=== PATIENT | female | born 1960 | race Caucasian/White ===

== ENCOUNTER → 2020-02-14 08:31 | Outpatient (BNVA) | payer MEDICARE, MEDICAID, SELFPAY | PROVIDERS: Family Provider Family Medicine; PCP Family Medicine; Referring Provider Physician Assistant Medical; Visit Provider Anesthesiology Pain Medicine | DX: M51.16 Intervertebral disc disorders with radiculopathy, lumbar region (principal); M47.816 Spondylosis without myelopathy or radiculopathy, lumbar region; M50.90 Cervical disc disorder, unspecified, unspecified cervical region; M54.9 Dorsalgia, unspecified; M19.90 Unspecified osteoarthritis, unspecified site; M62.830 Muscle spasm of back; Z79.891 Long term (current) use of opiate analgesic | CPT/HCPCS: 99205 ==

== ENCOUNTER → 2020-03-13 09:14 | Outpatient (BNVA) | payer MEDICARE, MEDICAID, SELFPAY | PROVIDERS: Family Provider Family Medicine; PCP Physician Assistant Medical; Visit Provider Anesthesiology Pain Medicine | DX: M47.816 Spondylosis without myelopathy or radiculopathy, lumbar region (principal); M51.16 Intervertebral disc disorders with radiculopathy, lumbar region; M50.90 Cervical disc disorder, unspecified, unspecified cervical region; M54.9 Dorsalgia, unspecified; M19.90 Unspecified osteoarthritis, unspecified site; M62.830 Muscle spasm of back | CPT/HCPCS: 99213; 99214 ==

== ENCOUNTER → 2020-04-13 12:17 | Outpatient (BNVA) | payer MEDICARE, MEDICAID, SELFPAY | PROVIDERS: Family Provider Family Medicine; PCP Physician Assistant Medical; Visit Provider Anesthesiology Pain Medicine | DX: M47.816 Spondylosis without myelopathy or radiculopathy, lumbar region (principal); M54.9 Dorsalgia, unspecified | CPT/HCPCS: 64493; 64494; 64495; J3490 ==

== ENCOUNTER → 2020-05-02 10:02 | Outpatient (BNVA) | payer MEDICARE, MEDICAID, SELFPAY | PROVIDERS: Family Provider Family Medicine; PCP Physician Assistant Medical; Visit Provider Anesthesiology Pain Medicine | DX: M51.16 Intervertebral disc disorders with radiculopathy, lumbar region (principal); M48.062 Spinal stenosis, lumbar region with neurogenic claudication; M47.816 Spondylosis without myelopathy or radiculopathy, lumbar region; M50.90 Cervical disc disorder, unspecified, unspecified cervical region; M54.9 Dorsalgia, unspecified; M19.90 Unspecified osteoarthritis, unspecified site; M62.830 Muscle spasm of back; Z79.891 Long term (current) use of opiate analgesic | CPT/HCPCS: 99214; 99215 ==

== ENCOUNTER → 2020-05-15 08:47 | Outpatient (BNVA) | payer MEDICARE, MEDICAID, SELFPAY | PROVIDERS: Family Provider Family Medicine; PCP Physician Assistant Medical; Referring Provider Anesthesiology Pain Medicine; Visit Provider Orthopaedic Surgery | DX: M51.16 Intervertebral disc disorders with radiculopathy, lumbar region (principal); M48.061 Spinal stenosis, lumbar region without neurogenic claudication; M41.80 Other forms of scoliosis, site unspecified; M81.0 Age-related osteoporosis without current pathological fracture | CPT/HCPCS: 72114 ==

== ENCOUNTER → 2020-05-24 09:55 | Outpatient (BNVA) | payer MEDICARE, MEDICAID, SELFPAY | PROVIDERS: Family Provider Family Medicine; PCP Physician Assistant Medical; Visit Provider Anesthesiology Pain Medicine | DX: M51.16 Intervertebral disc disorders with radiculopathy, lumbar region (principal); M48.062 Spinal stenosis, lumbar region with neurogenic claudication; M47.816 Spondylosis without myelopathy or radiculopathy, lumbar region; M50.90 Cervical disc disorder, unspecified, unspecified cervical region; M54.9 Dorsalgia, unspecified; M17.0 Bilateral primary osteoarthritis of knee; M62.830 Muscle spasm of back; Z79.891 Long term (current) use of opiate analgesic | CPT/HCPCS: 99214 ==

== ENCOUNTER → 2020-06-21 09:51 | Outpatient (BNVA) | payer MEDICARE, MEDICAID, SELFPAY | PROVIDERS: Family Provider Family Medicine; PCP Physician Assistant Medical; Visit Provider Anesthesiology Pain Medicine | DX: M51.16 Intervertebral disc disorders with radiculopathy, lumbar region (principal); M48.062 Spinal stenosis, lumbar region with neurogenic claudication; M47.816 Spondylosis without myelopathy or radiculopathy, lumbar region; M54.9 Dorsalgia, unspecified; M50.90 Cervical disc disorder, unspecified, unspecified cervical region; M62.830 Muscle spasm of back; M19.90 Unspecified osteoarthritis, unspecified site; Z79.891 Long term (current) use of opiate analgesic | CPT/HCPCS: 99213 ==

== ENCOUNTER → 2020-07-31 08:54 | Outpatient (BNVA) | payer MEDICARE, MEDICAID, SELFPAY | PROVIDERS: Family Provider Family Medicine; PCP Physician Assistant Medical; Visit Provider Anesthesiology Pain Medicine | DX: M51.16 Intervertebral disc disorders with radiculopathy, lumbar region (principal); M48.062 Spinal stenosis, lumbar region with neurogenic claudication; M47.816 Spondylosis without myelopathy or radiculopathy, lumbar region; M54.9 Dorsalgia, unspecified; M50.90 Cervical disc disorder, unspecified, unspecified cervical region; M19.012 Primary osteoarthritis, left shoulder; M62.830 Muscle spasm of back; Z79.899 Other long term (current) drug therapy; Z79.891 Long term (current) use of opiate analgesic | CPT/HCPCS: 99214 ==

== ENCOUNTER 2020-12-20 13:11 | Outpatient (CLI) | payer MEDICARE, MEDICAID, SELFPAY ==
--- NOTE | 2020-12-20 13:21 | CT_ITS ---
WS: [id number] CT NECK WITH CONTRAST HISTORY: BILATERAL Otalgia, cervicalgia TECHNIQUE: Contiguous 5 mm axial images are performed through the neck with intravenous contrast. Sag ittal and coronal reformats are also submitted. All CT scans at [facility] use at least o ne of these dose optimization techniques: automated exposure control; mA and/or kV adjustment per pat ient size (includes targeted exams where dose is matched to clinical indication); or iterative recons truction. CONTRAST: CONTRAST: Omnipaque 300; 95 mL IV. DLP: 1277.13 mGycm COMPARISON: None available. Nasopharynx, oropharynx, hypopharynx and larynx are unremarkable. No soft tissue masses or abnormal e nhancement. Torus tubarius and fossa of Rosenmuller and parapharyngeal fat are normal. Small benign cervical chain lymph nodes are identified. Largest lymph node on the RIGHT measures 6 mm in short axis diameter. Tiny nodules within each thyroid. There is also a coarse calcification in the lower pole of the LEFT thyroid. No large nodules. No osseous abnormalities. Visualized portions of the skull base demonstrate no abnormalities. Orbits and globes are within norm al limits. No soft tissue masses. Visualized paranasal sinuses and mastoid air cells are normal. Lung apices are clear. CT/CT neck w con* [id number] IMPRESSION: 1. No neck mass or significant adenopathy. 2. No abnormality in the parapharyngeal soft tissue fat or in the region of th e internal or external auditory canals.
[2020-12-20] MEDS: iohexol 300 mg/mL 100 mL Btl IV (13:38)
== END 2020-12-20 13:12 | disposition home or self-care (01) ==
LOC: RADWPI 13:17
PROVIDERS: PCP Physician Assistant Medical; Visit Provider Otolaryngology
DX: H92.03 Otalgia, bilateral (principal); M54.2 Cervicalgia
CPT/HCPCS: 70491; Q9967